=== PATIENT | male | born 1980 | race Caucasian/White ===

== ENCOUNTER 2021-10-04 15:13 | Emergency (ER) | payer SELFPAY ==
[~2021-10-04] VITALS: Ht 170.2 cm; Wt 75.0 kg
[2021-10-04 15:31] VITALS: BP 146/99
[2021-10-04] MEDS ORDERED: LORA-1000 PO (19:28)
[2021-10-04] MEDS ORDERED: LORazepam 1 MG TABLET PO ONE (19:30)
== END 2021-10-04 20:30 | disposition home or self-care (01) ==
LOC: EMS 15:16
DX: F10.20 Alcohol dependence, uncomplicated (principal); F41.9 Anxiety disorder, unspecified; Y90.9 Presence of alcohol in blood, level not specified
CPT/HCPCS: 99283